=== PATIENT | male | born 1975 | race Two or more races ===

== ENCOUNTER 2019-01-11 09:00 | Inpatient (IN) | payer OTHER ==
[~2019-01-11] VITALS: Ht 170.2 cm; Wt 119.3 kg
--- NOTE | 2019-01-11 09:29 | NUR ---
PACIENTE ALERTA Y ORIENTADO EN ARMANDO ILAN ESFERAS, REFIERE PRESION SANGUINEA ELEVADA DESDE PAT. PACIENTE REFIERE NO ESTAR TOMANDO MEDICAMENTOS PARA LA PRESION DESDE HACE MESES DEBIDO A QUE SE LE ACABARON Y NO ROLDAN BUSCADO RECETA. REFIERE [facility] PAT [facility] POR LOS MISMOS [place] DONDE LE ADMINISTRARON VASOTEC Y CATAPRES Y MUESTRAS DE LABORATORIO Y [facility] POR RETRASO EN RE EVALUACION MEDICA. PACIENTE REFIERE NYA TOMADO A LAS 9:00 AM ISAAC HYZAAR 100 MG/25 MG. BP EN TRIAGE MEDIDA DE MANERA MANUAL.
--- NOTE | 2019-01-11 10:59 | NUR ---
SE ORIENTA PTE Y FAMILIAR SOBRE EL TRATAMIENTO ORDENADO POR EL DR DUPREE, PTE ALERTA Y CONCIENTE POR 3 CONECTADO A MONITOR CARDIACO Y OXYMETRIA DE [place], SE CALIZA PTE EN LA MANO DERECHA CON ANGIO #18 SE OBSERVA VENOPUNCION PATENTE Y JACKIE DE EDEMA, SE REALIZAN MUESTRAS DE LABOTORIO Y SE ADMINISTRAN MEDICAMENTO MARITZA ORDENADO PTE SE MANTEINE EN OBSERVACION Y BAJO TRATAMIENTO
--- NOTE | 2019-01-11 14:31 | NUR ---
SE KRISTIE LA SEGUNDAS TROPONINAS PTE NO PRESENTA DOLOR AL MOMETNO SE MANTIENE EN OBSERVACION Y BAJO TRATAMENTO EN ESPERA DEL DR KISHA ERIC
--- NOTE | 2019-01-11 15:19 | NUR ---
SE RECIBE PTE DEL TURNO ANTERIOR. PTE ALERTA Y ORIENTADO X3 EN CAMA CON BARANDAS ELEVADAS Y WEI DE IDENTIFICACION. PTE CONECTADO A MONITOR CARDIACO Y OXIMETRIA DE PULSO. PTE PRESENTA BUEN PATRON RESPIRATORIO, TIBIO AL TACTO. AREA DE VENOPUNCION PATENTE RECIBIENDO TRIDIL 50 MG/250 ML D5W @ 3ML/HR Y 40 MEQ KCL @ 125 ML/HR. SE KRISTIE SIGNOS VITALES Y SE MANTIENE EN OBSERVACION POR CAMBIOS.
[2019-01-11] MEDS ORDERED: LOTREL 5-20 MG1 CAP PO (16:57)
[2019-01-11] MEDS ORDERED: HYDROCHLOROTH12.5 M1 PO (16:57)
[2019-01-11] MEDS ORDERED: CATAPRES0.1 MG PO (16:58)
[2019-01-18] MEDS ORDERED: APRESOLINE 10MG10 MG PO (11:44)
[2019-01-18] MEDS ORDERED: CARdura 4MG TABLET PO (11:44)
[2019-01-18] MEDS ORDERED: CLONAZEPAM0.5 MG PO (11:44)
[2019-01-18] MEDS ORDERED: TOPROL XL50 M1 PO (11:44)
[2019-01-18] MEDS ORDERED: ASA-EC81 MG PO (11:44)
[2019-01-18] MEDS ORDERED: LOSARTAN-HCTZ1 EAC2 PO (11:44)
[2019-01-18] MEDS ORDERED: ISOSORBIDE MONO30 MG PO (11:44)
[2019-01-18] MEDS ORDERED: AMLODIPINE BESY10 MG PO (11:44)
== END 2019-01-18 12:21 | disposition home or self-care (01) | DRG 292 ==
LOC: ER 09:00 → MEDJ 17:20
PROVIDERS: ADMIT Internal Medicine
PROC: B246ZZZ Ultrasonography of Right and Left Heart (ICD-10-PCS; principal; 2019-01-11)
PROC: 4A12X4Z Monitoring of Cardiac Electrical Activity, External Approach (ICD-10-PCS; 2019-01-11)
PROC: BT4JZZZ Ultrasonography of Kidneys and Bladder (ICD-10-PCS; 2019-01-11)
PROC: B345ZZZ Ultrasonography of Bilateral Common Carotid Arteries (ICD-10-PCS; 2019-01-11)
PROC: BW28Y0Z Computerized Tomography (CT Scan) of Head using Other Contrast, Unenhanced and Enhanced (ICD-10-PCS; 2019-01-12)
DX: I11.0 Hypertensive heart disease with heart failure (principal); N17.8 Other acute kidney failure; I50.41 Acute combined systolic (congestive) and diastolic (congestive) heart failure; I16.0 Hypertensive urgency; E66.09 Other obesity due to excess calories

== ENCOUNTER 2022-04-14 12:39 | Emergency (ER) | payer OTHER ==
[~2022-04-14] VITALS: Ht 170.2 cm; Wt 128.4 kg
[~2022-04-14 12:39] MED LIST: AMLODIPINE BESY10 MG PO; APRESOLINE 10MG10 MG PO; ASA-EC81 MG PO; CARdura 4MG TABLET PO; CATAPRES0.1 MG PO; CLONAZEPAM0.5 MG PO; HYDROCHLOROTH12.5 M1 PO; ISOSORBIDE MONO30 MG PO; LOSARTAN-HCTZ1 EAC2 PO; LOTREL 5-20 MG1 CAP PO; TOPROL XL50 M1 PO
[2022-04-14] MEDS ORDERED: DOLOGEN CAPLET1 EACH PO (17:43)
[2022-04-14] MEDS ORDERED: TUSNEL LIQUID178 ML PO (17:43)
[2022-04-14] MEDS ORDERED: OSEL75CA PO (17:43)
== END 2022-04-14 18:16 | disposition home or self-care (01) ==
LOC: ER 12:39
DX: J10.1 Influenza due to other identified influenza virus with other respiratory manifestations (principal); I95.9 Hypotension, unspecified

== ENCOUNTER 2023-05-18 18:53 | Emergency (ER) | payer OTHER ==
[~2023-05-18] VITALS: Ht 170.2 cm; Wt 132.9 kg
[~2023-05-18 18:53] MED LIST changes: +DOLOGEN CAPLET1 EACH PO; +OSEL75CA PO; +TUSNEL LIQUID178 ML PO
[2023-05-18] MEDS ORDERED: LOTREL 10-40 M1 EACH (19:07)
[2023-05-18] MEDS ORDERED: HYZAAR 100-251 EACH (19:07)
[2023-05-18] MEDS ORDERED: CARDURA XL8 MG (19:07)
[2023-05-18 21:10] LABS: HEMATOCRIT 38.6 % (39.0-48.0); HEMOGLOBIN 13.2 g/dL (13-16.00); MEAN CELL VOLUME 82.2 fL (80.0-100.00); MEAN CORPUSCULAR HEMOGLOBIN 28.1 pg (27.00-32.0); MEAN CORPUSCULAR HGB CONC 34.2 g/dl (32.0-36.0); PLATELET COUNT 275 K/uL (150-450); RED BLOOD COUNT 4.69 M/uL (4.00-6.00); RED CELL DISTRIBUTION WIDTH 13.1 % (11.5-14.5)
[2023-05-18 21:43] LABS: ALBUMIN 3.8 gm/dL (3.4-5.0); BILIRUBIN TOTAL 1.06 mg/dL (0.3-1.2); CALCIUM 8.8 mg/dL (8.5-10.1); CREATININE SERUM 1.11 mg/dL (0.70-1.30); GFR 71.64; GLOBULINA 4.2 G/DL (2.4-3.5); POTASSIUM 3.36 mEq/L (3.5-5.1)
[2023-05-18 22:16] LABS: URINE APPEARANCE Clear; URINE BILIRRUBIN Negative (NEGATIVE); URINE BLOOD Negative; URINE COLOR Yellow; URINE GLUCOSE Negative (NEGATIVE); URINE LEUKOCYTE Negative; URINE NITRATE Negative; URINE PROTEIN Negative (NEGATIVE)
[2023-05-18 22:19] LABS: URINE BACTERIA 12.5 uL (0.0-1933); URINE RBC 3.4 uL (0.0-20.8)
[2023-05-18 22:27] LABS: URINE WBC 0.4 uL (0.0-23.2)
== END 2023-05-19 00:58 | disposition left against medical advice (07) ==
LOC: ER 18:54
PROVIDERS: Emergency Medicine
DX: I10 Essential (primary) hypertension (principal)